=== PATIENT | male | born 1940 | race Caucasian/White ===

== ENCOUNTER 2017-09-28 06:59 | Day surgery (SDC) | payer MEDICARE, OTHER, SELFPAY ==
--- NOTE | 2017-09-28 | TOBX_PTH ---
PATIENT: RUTH NEVES LOC: [facility] [place] U#:[id number] AGE/SX: 77/M ROOM: RE09/28/[address]: Dr. Johnny Durán MD : 1940 BED: DIS: 09/28/2017 SPEC #: [id number] RECD: 09/28/17 08:57 STATUS: PATRIC SABA #: [id number] JUAN M: 09/28/17 00:[address]: Johnny Durán DEPT: SURGICAL PATHOLOGY RECD BY: Destiny Mosquera ENTERED: 09/28/17 09:48 SP TYPE: TONGUE BX OTHR DR: Out of Town Doctor Tissues: Tongue, NOS Procedures: Frozen Section (charge) Surgery Specimen Level IV Frozen (no charge) HEADER OPERATION: Biopsy posterior one-third tongue with frozen section PRE-OP DIAGNOSIS: Primary malignant neoplasm base of tongue; cervical lymphadenopathy; dysphagia TISSUE SUBMITTED: Base tongue mass sent for frozen section FROZEN SECTION DIAGNOSIS Tongue base mass, biopsy: Invasive squamous cell carcinoma. SJ:rg 09/28/17 MICROSCOPIC DIAGNOSIS Tongue base mass, biopsy: Invasive moderately differentiated squamous cell carcinoma. See comment. SJ:vilma 10/01/17 COMMENT Immunohistochemistry ([id number]) supports the above diagnosis. Results from immunohistochemistry ([id number]) for surrogate HPV marker (p16) will be reported separately. Case has been reviewed in consultation with Dr. Lazo who concurs with the above diagnosis. IDC:AM MICROSCOPIC DESCRIPTION Slides are reviewed. GROSS DESCRIPTION Received fresh for frozen section consultation labeled with the patient's name is a specimen designated tongue base mass. The specimen consists of multiple irregular fragments of reddish-perez soft tissue that in aggregate measure 1 x 1 x 0.3 cm. The specimen is submitted in its entirety for frozen section consultation in one block. / ALYSSA:vilma 09/28/17 TC:0 CPT: 78944, 04408
--- NOTE | 2017-09-28 | IMM_PTH ---
PATIENT: RUTH NEVES [place] [facility] [place][id number] AGE/SX: 77/M ROOM: RE09/28/[address]: Dr. Johnny Durán MD : 1940 BED: DIS: 09/28/2017 SPEC #: [id number] RECD: 10/01/17 09:53 STATUS: PATRIC REQ #: [id number] JUAN M: 09/28/17 00:[address]: Johnny Durán DEPT: IMMUNOHISTOCHEMISTRY RECD BY: Destiny Mosquera ENTERED: 10/01/17 09:55 SP TYPE: IMMUNO OTHR DR: Out of Town Doctor Tissues: Tongue, NOS Procedures: CK5-6 (add) CK8 (add) MART1 (add) P16 (add) P40 (add) CK7 (initial) S-100 (add) PHYSICIAN & INSTITUTION [place] [id number] SPECIMEN INFORMATION: Tissue Source: Base tongue mass Clinical Info: Primary malignant neoplasm base of tongue Specimen Number: [id number] CPT code: 36445, 71672 x6 METHODOLOGY: Deparaffinized sections of prefer/formalin-fixed tissue or PAP/DQ stained slides are incubated with monoclonal/polyclonal antibodies/oligonucleotide probes. Localization is made via biotin free immunoperoxidase method. Appropriate controls are performed and reacted as expected. Results on target cell population are indicated in the following table: RESULTS: ANTIBODY / CLONE RESULT P40 (BC28) positive CK5-6 (D5 & 1684) positive S-100 (4C4.9) negative CK7 (OV-TL12/30) positive, focal CK8 (66mscxE96) positive, weak, focal MART-1 (A-103) negative P16 (E6H4) positive, block staining These tests were developed and their performance characteristics determined by Laboratory. They may not have been cleared or approved by the [place]. Food and Drug Administration. The FDA has determined that such clearance or approval is not necessary. INTERPRETATION: Base tongue mass, biopsy: Invasive squamous cell carcinoma. CAMMY:vilma 10/02/17
[2017-09-28 07:25] VITALS: BP 186/87; PULSE 63; RESP 16; TEMP 36.5; O2SAT 100; BMI 23.6
[2017-09-28 08:00] LABS: Bedside Glucose 149 mg/dL (70-110)
[2017-09-28] MEDS: Oxymetazoline 0.05% 1 SPRAY SPRAY.BTL 15 SPRAY (08:58)
[2017-09-28] MEDS: Lidocaine 4% 50 ML Bottle (08:58)
--- NOTE | 2017-09-28 09:10 | PCM.OPRPT ---
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 This is been treated by his primary care physician with antibiotics but failed to show improvement and he subsequently presented to my office for evaluation. Examination showed a large firm mass within the left neck as well as smaller right firm node and a ulcerated mass of the tongue base suspicious for malignancy. CT scan was performed which again confirmed tongue base mass and bilateral necrotic cervical adenopathy and biopsy for confirmation of suspicion of malignant process was advised and the patient was agreeable to proceed. The risks, alternatives, potential benefits, and complications were discussed at length and any questions answered to the patient and/or caregiver's satisfaction. Witnessed informed consent was obtained in the office, and the patient and/or caregiver was agreeable to proceed. Procedure went as follows: The patient was identified in the preoperative holding brought to the operating room was placed under general anesthesia and intubated. When appropriate anesthesia is obtained, the head of bed was rotated and the patient prepped and draped in usual sterile fashion. A dental guard was placed to protect the upper teeth and the Dedo laryngoscope then introduced. Direct laryngoscopy was then carried out. There is noted to be a ulcerated tongue base mass just to the right of the midline approximately 2 x 2 cm in size. The lateral and posterior pharyngeal wall mucosa was normal in appearance. The epiglottis and vallecula appeared to be spared by the lesion. The true and false vocal cords were normal in appearance. The subglottic mucosa appeared to be normal in appearance. This completed the laryngoscopy portion of the procedure. Attention was then turned to the tongue base mass which was then biopsied with a cup forceps and the specimen sent for pathologic evaluation. This confirmed invasive squamous cell carcinoma. Pledgets soaked in oxymetazoline were then topically applied for hemostasis at the biopsy site and then removed. The patient was then returned to anesthesia where he was revived and extubated without complication having tolerated the procedure well. Type of Anesthesia:: General Anesthesiologist: Johnny Kulkarni Special Medications: none Specimen's removed: tongue base biopsy Drains: none Estimated Blood Loss (mL): 0 mL Fluids Replaced: 800 mL Grafts/Implants Used: none - Complications none - Admit VTE Documentation VTE Present on Admission: No VTE Mechan Device Prophylaxis: SCD's VTE Pharm Prophylaxis ordered?: No
--- NOTE | 2017-09-28 09:17 | PCM.DC ---
- Discharge Diagnoses Current Active Problems: Current Active and Chronic Problems Malignant neoplasm of base of tongue (Acute) Metastasis to cervical lymph node (Acute) You will use the following diet at home:: Regular Discharge Activity: Return to Normal Activity Call your doctor if your incision/area has: Sudden Increased Bleeding Call your doctor if you observe: Fever of 101 or Higher, Uncontrolled pain Primary Care Physician: [facility] Doctor,Out of [Primary Care Provider] - Please Follow Up With: Johnny Durán MD When: 2 weeks
[2017-09-28 09:25] VITALS: BP 163/77; BP 186/87; PULSE 76; RESP 16; TEMP 36.2; O2SAT 95
[2017-09-28 09:30] VITALS: BP 160/75; BP 186/87; PULSE 65; RESP 16; O2SAT 96
[2017-09-28 09:45] VITALS: BP 136/62; BP 186/87; PULSE 67; RESP 16; O2SAT 96
[2017-09-28 09:56] LABS: Bedside Glucose 154 mg/dL (70-110)
[2017-09-28 10:00] VITALS: BP 165/61; BP 186/87; PULSE 69; RESP 16; TEMP 36.3; O2SAT 98
[2017-09-28 10:26] VITALS: BP 186/87
== END 2017-09-28 10:35 | disposition home or self-care (01) ==
LOC: SDC 07:00 → AC 07:01
PROVIDERS: Visit Provider Otolaryngology
PROC: (CPT 31575; principal; 2017-09-28 08:15)
DX: C01 Malignant neoplasm of base of tongue (principal); C77.0 Secondary and unspecified malignant neoplasm of lymph nodes of head, face and neck; R13.10 Dysphagia, unspecified; E11.9 Type 2 diabetes mellitus without complications; K21.9 Gastro-esophageal reflux disease without esophagitis; Z79.84 Long term (current) use of oral hypoglycemic drugs; Z79.82 Long term (current) use of aspirin; Z79.899 Other long term (current) drug therapy
CPT/HCPCS: 31575; 41105; 82962; 88305; 88331; 88341; 88342; J7120; J2405